=== PATIENT | female | born 1950 | race American Indian/Alaskan Native ===

== ENCOUNTER 2016-10-17 11:46 | Emergency (ER) | payer MEDICARE ==
[2016-10-17] MEDS ORDERED: MORPHINE IV ONE ×2 (12:05→14:00)
[2016-10-17] MEDS ORDERED: APRESOLINE IV ONE (12:07)
[2016-10-17] MEDS ORDERED: ZOFRAN IV ONE (12:07)
--- NOTE | 2016-10-17 12:13 | Emergency Department Report ---
ED General Adult HPI - General Chief complaint: Pain General Stated complaint: BODY ACHES/FALL Time Seen by Provider: 10/17/16 12:01 Source: patient, EMS Mode of arrival: Stretcher Limitations: Physical Limitation - History of Present Illness Initial comments: Patient is 66 years old female history of high blood pressure,she stated that she is going to her foot doctor when she started having significant pain all over her body. Checked her blood pressure and he was very high so send to the ER for further evaluation. Patient denied any chest pain that admitted that she has back pain and pelvic pain. No headache. No loss of consciousness. No weakness numbness or tingling sensation.. -: Sudden Location: back, buttocks Radiation: back Severity scale (0 -10): 6 Quality: stabbing Associated Symptoms: denies: chest pain - Related Data Home Medications Medication Instructions Recorded Confirmed Last Taken Carvedilol [Coreg] 25 mg PO BID 06/08/15 06/08/15 06/08/15 Gabapentin [Neurontin] 300 mg PO BID 06/08/15 06/08/15 06/08/15 cloNIDine [Catapres] 0.1 mg PO QHS 06/08/15 06/08/15 06/07/15 Previous Rx's Medication Instructions Recorded Last Taken Type Acetaminophen/Codeine [Tylenol #3] 1 tab PO Q6H PRN #15 tab 06/08/15 Unknown Rx Ondansetron [Zofran Odt] 4 mg PO Q8HR PRN #14 tab.rapdis 10/17/16 Unknown Rx oxyCODONE /ACETAMINOPHEN [Percocet 1 tab PO Q6HR PRN #10 tablet 10/17/16 Unknown Rx 5/325] Allergies Allergy/AdvReac Type Severity Reaction Status Date / Time acetaminophen [From Vicodin] Allergy Vomiting Verified 06/08/15 11:23 allopurinol Allergy Angioedema Verified 06/08/15 11:23 hydrocodone bitartrate Allergy Vomiting Verified 06/08/15 11:23 [From Vicodin] naproxen [From Naprosyn] Allergy Vomiting Verified 06/08/15 11:23 NSAIDS (Non-Steroidal Allergy Vomiting Verified 06/08/15 11:23 Anti-Inflamma ED Review of Systems ROS: Stated complaint: BODY ACHES/FALL Other details as noted in HPI Comment: All other systems reviewed and negative Constitutional: denies: chills, fever ENT: denies: ear pain, throat pain, dental pain Respiratory: denies: cough, shortness of breath, SOB with exertion, SOB at rest Cardiovascular: denies: chest pain, palpitations, dyspnea on exertion, edema, syncope, paroxysmal nocturnal dyspnea Gastrointestinal: denies: abdominal pain, nausea, vomiting, diarrhea, hematemesis Genitourinary: denies: dysuria, frequency Musculoskeletal: back pain, arthralgia, myalgia Psychiatric: denies: anxiety, auditory hallucinations, visual hallucinations ED Past Medical Hx - Past Medical History Hx Hypertension: Yes Hx Arthritis: Yes - Surgical History Hx Coronary Stent: Yes (2013) Hx Cholecystectomy: Yes Additional Surgical History: Right Hip Replacement x 2. Left Hip Replacement - Social History Smoking Status: Unknown if ever smoked Substance Use Type: None - Medications Home Medications: Home Medications Medication Instructions Recorded Confirmed Last Taken Type Acetaminophen/Codeine [Tylenol #3] 1 tab PO Q6H PRN #15 tab 06/08/15 Unknown Rx Carvedilol [Coreg] 25 mg PO BID 06/08/15 06/08/15 06/08/15 History Gabapentin [Neurontin] 300 mg PO BID 06/08/15 06/08/15 06/08/15 History cloNIDine [Catapres] 0.1 mg PO QHS 06/08/15 06/08/15 06/07/15 History Ondansetron [Zofran Odt] 4 mg PO Q8HR PRN #14 tab.rapdis 10/17/16 Unknown Rx oxyCODONE /ACETAMINOPHEN [Percocet 1 tab PO Q6HR PRN #10 tablet 10/17/16 Unknown Rx 5/325] ED Physical Exam - General Limitations: Physical Limitation General appearance: alert, in no apparent distress - Head Head exam: Present: normocephalic - Eye Eye exam: Present: normal appearance - ENT ENT exam: Present: normal exam - Neck Neck exam: Present: normal inspection - Respiratory Respiratory exam: Present: normal lung sounds bilaterally - Cardiovascular Cardiovascular Exam: Present: regular rate, normal rhythm, normal heart sounds - GI/Abdominal GI/Abdominal exam: Present: soft. Absent: distended, tenderness, guarding, rebound, rigid, normal bowel sounds, diminished bowel sounds, mass, bruit, pulsatile mass, hernia - Extremities Exam Extremities exam: Present: normal inspection. Absent: pedal edema - Back Exam Back exam: Present: normal inspection, full ROM. Absent: tenderness, CVA tenderness (R), CVA tenderness (L), muscle spasm, paraspinal tenderness, vertebral tenderness, rash noted - Neurological Exam Neurological exam: Present: alert, oriented X3, CN II-XII intact - Skin Skin exam: Present: warm, intact, normal color ED Course Vital Signs 10/17/16 10/17/16 10/17/16 11:46 12:42 12:43 Temperature 98.2 F Pulse Rate 87 87 Respiratory 18 18 18 Rate Blood Pressure 220/130 220/130 Blood Pressure [Right] O2 Sat by Pulse 98 98 Oximetry 10/17/16 10/17/16 13:12 13:56 Temperature Pulse Rate 78 Respiratory 18 18 Rate Blood Pressure Blood Pressure 177/78 [Right] O2 Sat by Pulse 98 Oximetry - Reevaluation(s) Reevaluation #1: 10/17/16 14:11 Patient is stated that she is feeling much better her pain is almost resolved. Blood pressure came down to 170/105. Patient will be discharged home to follow- up with her primary care physician and pain management Clinic. ED Medical Decision Making - Lab Data Result diagrams: 10/17/16 12:12 10/17/16 12:12 Critical care attestation.: If time is entered above; I have spent that time in minutes in the direct care of this critically ill patient, excluding procedure time. ED Disposition Clinical Impression: Hypertensive urgency, Back pain Disposition: DC-01 TO HOME OR SELFCARE Is pt being admited?: No Condition: Stable Referrals: PRIMARY CARE, [Primary Care Provider] - 3-5 Days
[2016-10-17 12:30] LABS: Eosinophils % (Auto) 3.2 % (0.0-4.3); Hematocrit 41.2 % (30.3-42.9); Hemoglobin 13.9 gm/dl (10.1-14.3); Mean Corpuscular HGB Conc 34 % (30-34); Mean Corpuscular Hemoglobin 32 pg (28-32); Mean Corpuscular Volume 94 fl (79-97); Platelet Count 174 K/mm3 (140-440); Red Blood Count 4.36 M/mm3 (3.65-5.03); Red Cell Distribution Width 13.9 % (13.2-15.2); White Blood Count 4.5 K/mm3 (4.5-11.0)
[2016-10-17 12:44] LABS: Alanine Aminotransferase 9 units/L (7-56); Albumin 3.6 g/dL (3.9-5); Alkaline Phosphatase 82 units/L (35-129); Anion Gap 20 mmol/L; Blood Urea Nitrogen 11 mg/dL (7-17); Calcium 9.4 mg/dL (8.4-10.2); Carbon Dioxide 19 mmol/L (22-30); Chloride 102.5 mmol/L (98-107); Glucose 106 mg/dL (65-100); Sodium 137 mmol/L (137-145); Total Protein 7.1 g/dL (6.3-8.2)
--- NOTE | 2016-10-17 13:21 | XRay Report ---
Single view chest: History: Chest pain back pain. Hypertension. Findings: Normal cardiomediastinal silhouette the trachea is midline. No consolidation, pneumothorax or pleural effusion. Impression: No acute cardiopulmonary findings
[2016-10-17 13:30] LABS: Bacteria,Urine 1+ /HPF (Negative); Bilirubin,Urine NEG (Negative); Blood,Urine NEG (Negative); Ketones,Urine NEG (Negative); Leukocyte Esterase,Urine NEG (Negative); Nitrite,Urine NEG (Negative); Protein,Urine <15 mg/dL mg/dL (Negative); Urobilinogen,Urine < 2.0 mg/dL (<2.0)
[2016-10-17 13:57] VITALS: BP 177/78
[2016-10-17] MEDS ORDERED: MORPHINE ONE (14:00)
== END 2016-10-17 14:38 | disposition home or self-care (01) ==
LOC: ED 11:46
DX: M54.9 Dorsalgia, unspecified (principal); I10 Essential (primary) hypertension
CPT/HCPCS: 36415; 71010; 80053; 81001; 85025; 96374; 96375; 96376; 99284; J0360; J2270; J2405

== ENCOUNTER 2017-03-20 11:50 | Emergency (ER) | payer MEDICARE ==
[2017-03-20] MEDS ORDERED: ZOFRAN ODT PO ONE (13:13)
[2017-03-20] MEDS ORDERED: ROXICODONE PO ONE (13:13)
--- NOTE | 2017-03-20 13:16 | Emergency Department Report ---
Chief Complaint: Fall Stated Complaint: FALL/ BACK PAIN - HPI History of Present Illness: 66-year-old female p/w c/o lower back pain and knee pain s/p mechanical fall , stumbled while walking with walker. States she hit her lower back and knees she fell - ROS Review of Systems: hx of back pain and difficulty walking - Exam Vital Signs: Vital Signs 03/20/17 12:58 Temperature 98 F Pulse Rate 88 Respiratory 18 Rate Blood Pressure 200/117 O2 Sat by Pulse 98 Oximetry Physical Exam: Patient awake alert O3, states she has severe lower back pain, sitting in wheelchair MSE screening note: Focused history and physical exam performed. Due to findings the following was ordered: Screening Assessment/Plan/Differential Dx: Hypertension, lower back pain, knee pain status post mechanical fall 1- This initial assessment/diagnostic orders/clinical plan/ treatment(s) is/are subject to change based on pt's health status, clinical progression and re- assessment by fellow clinical providers in the ED. Further treatment and workup at subsequent clinical provers discretion. Patient/guardians urged not to elope from ED as their condition may be serious if not clinically assessed and managed. 2-Zofran and oxycodone 3-x-ray lower back and knees 4-As patient's blood pressure significantly elevated patient to be seen in main ED. Took all of her blood pressure medicines this morning. ED Disposition for MSE Condition: Stable
--- NOTE | 2017-03-20 17:35 | XRay Report ---
FINAL REPORT PROCEDURE: Right and left knees. TECHNIQUE: AP and lateral views of each knee. HISTORY: Patient fell, knee injury. COMPARISON: No prior studies are available for comparison. FINDINGS: Right knee: The bones appear intact without fracture or dislocation. There is severe narrowing of the knee joint. There is extensive hypertrophic osteophyte formation arising from the distal femur. The soft tissues are unremarkable. There is no definite knee effusion. Left knee: The bones appear intact without fracture or dislocation. There is severe narrowing of the knee joint. There is hypertrophic osteophyte formation arising from the distal femur. The soft tissues are unremarkable. There is no evidence of a knee effusion. IMPRESSION: Severe bilateral osteoarthritis. No evidence of fracture.
--- NOTE | 2017-03-20 17:48 | XRay Report ---
FINAL REPORT PROCEDURE: Lumbar spine. TECHNIQUE: AP and lateral views. HISTORY: Patient fell, back pain. COMPARISON: No prior studies are available for comparison. FINDINGS: The lumbar vertebrae have normal height and satisfactory alignment. There are no definite fractures. There is no spondylolisthesis. There is moderately severe or severe disc space narrowing throughout the lumbar spine. The sacrum and sacroiliac joints are unremarkable. There are bilateral hip prostheses. IMPRESSION: No evidence of fracture.
--- NOTE | 2017-03-21 00:29 | Emergency Department Report ---
ED Fall HPI - General Chief Complaint: Fall Stated Complaint: FALL/ BACK PAIN Time Seen by Provider: 03/20/17 22:44 Source: EMS Mode of arrival: Wheelchair - History of Present Illness Initial Comments: Her intermittent lower back and pelvis and hips after she fell earlier, here eval pelvis and hip pain, "need a pain shot", no headache no neck pain, no cp no syncope, here eval hip/pelvis pain and low back pain after slip and fall and knee pain, no focal neuro c/o, a and ox 3, not intoxicated Complaint: fall -: Gradual Fall From: standing When Fall Occurred: unsure Fall Witnessed: no Place Fall Occurred: home Loss of Consciousness: none Prolonged Down Time?: no Symptoms Prior to Fall: none Location - Extremities: Left: Knee, Right: Knee Quality: burning, sharp Context: tripped/slipped - Related Data Home Medications Medication Instructions Recorded Confirmed Last Taken Carvedilol [Coreg] 25 mg PO BID 06/08/15 06/08/15 06/08/15 Gabapentin [Neurontin] 300 mg PO BID 06/08/15 06/08/15 06/08/15 cloNIDine [Catapres] 0.1 mg PO QHS 06/08/15 06/08/15 06/07/15 Previous Rx's Medication Instructions Recorded Last Taken Type Acetaminophen/Codeine [Tylenol #3] 1 tab PO Q6H PRN #15 tab 06/08/15 Unknown Rx Ondansetron [Zofran Odt] 4 mg PO Q8HR PRN #14 tab.rapdis 10/17/16 Unknown Rx oxyCODONE /ACETAMINOPHEN [Percocet 1 tab PO Q6HR PRN #10 tablet 10/17/16 Unknown Rx 5/325] Allergies Allergy/AdvReac Type Severity Reaction Status Date / Time acetaminophen [From Vicodin] Allergy Vomiting Verified 06/08/15 11:23 allopurinol Allergy Angioedema Verified 06/08/15 11:23 hydrocodone bitartrate Allergy Vomiting Verified 06/08/15 11:23 [From Vicodin] naproxen [From Naprosyn] Allergy Vomiting Verified 06/08/15 11:23 NSAIDS (Non-Steroidal Allergy Vomiting Verified 06/08/15 11:23 Anti-Inflamma ED Review of Systems ROS: Stated complaint: FALL/ BACK PAIN Other details as noted in HPI Comment: All other systems reviewed and negative Constitutional: denies: diaphoresis, fever, malaise, weakness Eyes: denies: eye discharge, vision change ENT: denies: dental pain, hearing loss, epistaxis Respiratory: denies: cough, orthopnea, shortness of breath, SOB with exertion, SOB at rest, stridor, wheezing Cardiovascular: denies: chest pain, palpitations, dyspnea on exertion, orthopnea , edema, syncope, paroxysmal nocturnal dyspnea Endocrine: denies: excessive sweating, flushing, intolerance to cold, increased hunger, increased thirst, increased urine, unexplained weight gain, unexplained weight loss Gastrointestinal: denies: hematemesis, melena, hematochezia Genitourinary: denies: frequency, hematuria, discharge, abnormal menses, dyspareunia Musculoskeletal: arthralgia, myalgia. denies: joint swelling Neurological: denies: numbness, paresthesias, confusion, abnormal gait, vertigo Hematological/Lymphatic: denies: easy bruising ED Past Medical Hx - Past Medical History Hx Hypertension: Yes Hx Arthritis: Yes Additional medical history: frequent falls-walks with walker - Surgical History Hx Coronary Stent: Yes (2013) Hx Cholecystectomy: Yes Additional Surgical History: Right Hip Replacement x 2. Left Hip Replacement - Social History Smoking Status: Unknown if ever smoked - Medications Home Medications: Home Medications Medication Instructions Recorded Confirmed Last Taken Type Acetaminophen/Codeine [Tylenol #3] 1 tab PO Q6H PRN #15 tab 06/08/15 Unknown Rx Carvedilol [Coreg] 25 mg PO BID 06/08/15 06/08/15 06/08/15 History Gabapentin [Neurontin] 300 mg PO BID 06/08/15 06/08/15 06/08/15 History cloNIDine [Catapres] 0.1 mg PO QHS 06/08/15 06/08/15 06/07/15 History Ondansetron [Zofran Odt] 4 mg PO Q8HR PRN #14 tab.rapdis 10/17/16 Unknown Rx oxyCODONE /ACETAMINOPHEN [Percocet 1 tab PO Q6HR PRN #10 tablet 10/17/16 Unknown Rx 5/325] ED Physical Exam - General Limitations: No Limitations General appearance: alert, in no apparent distress, anxious - Head Head exam: Present: atraumatic, normocephalic - Eye Eye exam: Present: normal appearance, PERRL, EOMI - ENT ENT exam: Present: normal exam, normal orophraynx - Neck Neck exam: Present: normal inspection. Absent: tenderness, meningismus, full ROM, lymphadenopathy, thyromegaly - Respiratory Respiratory exam: Present: normal lung sounds bilaterally. Absent: respiratory distress, wheezes, rales, rhonchi, stridor, chest wall tenderness, accessory muscle use, decreased breath sounds, prolonged expiratory - Cardiovascular Cardiovascular Exam: Present: regular rate, normal rhythm. Absent: normal heart sounds, systolic murmur, diastolic murmur, rubs, gallop - GI/Abdominal GI/Abdominal exam: Present: soft. Absent: distended, tenderness, guarding, rebound, organomegaly, mass, bruit, pulsatile mass - Extremities Exam Extremities exam: Absent: pedal edema, calf tenderness - Back Exam Back exam: Present: muscle spasm, paraspinal tenderness. Absent: CVA tenderness (R) - Neurological Exam Neurological exam: Present: alert, oriented X3, CN II-XII intact. Absent: motor sensory deficit - Skin Skin exam: Absent: cyanosis, diaphoretic, erythema, urticaria, vesicles, petechiae, pallor, abrasion, ecchymosis ED Course Vital Signs 03/20/17 03/20/17 03/20/17 12:58 13:21 14:29 Temperature 98 F Pulse Rate 88 82 Respiratory 18 18 Rate Blood Pressure 200/117 162/96 Blood Pressure [Left] O2 Sat by Pulse 98 Oximetry 03/20/17 23:14 Temperature 98.0 F Pulse Rate 96 H Respiratory 20 Rate Blood Pressure Blood Pressure 186/92 [Left] O2 Sat by Pulse 98 Oximetry - Reevaluation(s) Reevaluation #1: 03/21/17 01:55 Patient had initial screen studies were ordered these were all unremarkable for acute process I did reevaluate the patient we did give her a pain shot after she had a pain shot she was up walking around the ED with her walker seemingly without difficulty I was going to x-ray more parts of her body because she was also complaining of low back pain and hip and pelvis pain however she did refuse these she also refuses to sign out AMA she denied headache loss consciousness neck pain no chest pain ED Medical Decision Making - Radiology Data Radiology results: report reviewed - Medical Decision Making Patient denied syncope denied head injury denies neck pain she is having persistent low back pain and hip and pelvis. She is refusing further imaging she ambulated about the ED. She was alert and oriented 3 and nontoxic A she is refusing to sign out AMA but was informed of risks including missed fracture and internal injury she did verbalize understanding of this refues to sign AMA [ left w/o received discharge instructions no syncope no fever no focal neuro c/o, no cp Critical care attestation.: If time is entered above; I have spent that time in minutes in the direct care of this critically ill patient, excluding procedure time. ED Disposition Clinical Impression: Myalgia, Fall Disposition: LEFT AGAINST MED ADVICE Is pt being admited?: No Condition: Stable Instructions: Musculoskeletal Pain (ED), Fall Prevention (ED) Additional Instructions: See her regular doctor or return if worse or new alarming symptoms or call 911 Referrals: PRIMARY CARE, [Primary Care Provider] - 3-5 Days Time of Disposition: 02:00
[2017-03-21] MEDS ORDERED: ZOFRAN ODT PO ONE (00:30)
[2017-03-21] MEDS ORDERED: DILAUDID IM ONE (00:30)
[2017-03-21 01:14] VITALS: BP 186/92
--- NOTE | 2017-03-21 01:48 | XRay Report ---
FINAL REPORT EXAM: XR SPINE THORACIC 2V HISTORY: Back pain. TECHNIQUE: Two frontal and two lateral radiographs of the thoracic spine were obtained. No prior studies are available for comparison. FINDINGS: The upper thoracic vertebral bodies are not well visualized on the lateral radiograph, though appear grossly unremarkable on the frontal projections. There is mild anterior wedging of the T11 and T12 vertebral bodies, of indeterminate age. This is of uncertain clinical significance and may be normal developmental variant. However, if there is specific pain referable to this location, MRI examination can be performed for further evaluation. The remainder of the visualized thoracic vertebral bodies are within normal limits. There are moderate spondylotic and degenerative changes seen throughout the thoracic spine. There is a mild thoracolumbar dextroscoliosis. There is partial visualization of moderate to severe degenerative change at the left glenohumeral joint. IMPRESSION: 1. Mild anterior wedging of the T11 and T2 vertebral bodies, of indeterminate age (and which may be normal developmental variant). Correlation with patient's physical exam and clinical symptoms is recommended. If there is specific pain in this region, MRI examination (with STIR imaging) can be performed for further evaluation. 2. Moderate diffuse spondylotic and degenerative changes. Mild thoracolumbar dextroscoliosis.
== END 2017-03-21 02:19 | disposition left against medical advice (07) ==
LOC: ED 11:50
DX: M54.5 Low back pain (principal); R10.2 Pelvic and perineal pain; M25.561 Pain in right knee; M25.562 Pain in left knee; M25.559 Pain in unspecified hip; Z88.6 Allergy status to analgesic agent; Z88.8 Allergy status to other drugs, medicaments and biological substances; W01.0XXA Fall on same level from slipping, tripping and stumbling without subsequent striking against object, initial encounter; Y93.89 Activity, other specified; Y99.8 Other external cause status; Y92.009 Unspecified place in unspecified non-institutional (private) residence as the place of occurrence of the external cause
CPT/HCPCS: 72070; 72100; 73560; 96372; 99284; J1170; Q0162